=== PATIENT | male | born 1985 | race Caucasian/White ===

== ENCOUNTER 2018-08-07 16:22 | Emergency (ER) | payer MEDICARE ==
--- NOTE | 2018-08-07 16:52 | ERPHSYRPT ---
- History of Present Illness Time Seen by Provider: 08/07/18 16:50 Source: patient, family Exam Limitations: no limitations Patient Subjective Stated Complaint: STATES HAS HAD LEG CRAMPS FOR MONTHS. WORSE TODAY AND FEELS CONFUSED. Triage Nursing Assessment: ambulated to room per self with family member. skin w/d, color normal, resp easy. gait normal. a/o times four Physician History: c/o pain thigh and leg muscles for 1 month. no other symptoms Timing/Duration: week(s) Associated Symptoms: denies symptoms Allergies/Adverse Reactions: No Known Drug Allergies Allergy (Unverified 08/07/18 16:48) Home Medications: Sertraline HCl 50 mg [Zoloft 50 mg Tablet] 50 mg PO DAILY 08/07/18 [History] Hx Tetanus, Diphtheria Vaccination/Date Given: Yes Hx Influenza Vaccination/Date Given: No Hx Pneumococcal Vaccination/Date Given: No - Review of Systems Constitutional: No Fever, No Chills Eyes: No Symptoms Ears, Nose, & Throat: No Symptoms Respiratory: No Cough, No Dyspnea Cardiac: No Chest Pain, No Edema, No Syncope Abdominal/Gastrointestinal: No Abdominal Pain, No Nausea, No Vomiting, No Diarrhea Genitourinary Symptoms: No Dysuria Musculoskeletal: Myalgias (both thighs and legs), No Back Pain, No Neck Pain Skin: No Rash Neurological: No Dizziness, No Focal Weakness, No Sensory Changes Psychological: No Symptoms Endocrine: No Symptoms All Other Systems: Reviewed and Negative - Past Medical History Pertinent Past Medical History: Yes Psycho-Social History: Depression - Past Surgical History Past Surgical History: Yes Other Surgical History: TUBES IN EARS - Social History Smoking Status: Never smoker Exposure to second hand smoke: No Drug Use: none Patient Lives Alone: No - Nursing Vital Signs Nursing Vital Signs: Initial Vital Signs Temperature 98.1 F 08/07/18 16:34 Pulse Rate 89 08/07/18 16:34 Respiratory Rate 16 08/07/18 16:34 Blood Pressure 138/81 08/07/18 16:34 O2 Sat by Pulse Oximetry 93 L 08/07/18 16:34 Pain Scale Pain Intensity [Thigh] 8 Pain Intensity 8 - Physical Exam General Appearance: no apparent distress, alert Eye Exam: PERRL/EOMI, eyes nml inspection Ears, Nose, Throat Exam: normal ENT inspection, TMs normal, pharynx normal, moist mucous membranes Neck Exam: normal inspection, non-tender, supple, full range of motion Respiratory Exam: normal breath sounds, lungs clear, No respiratory distress Cardiovascular Exam: regular rate/rhythm, normal heart sounds, normal peripheral pulses Gastrointestinal/Abdomen Exam: soft, normal bowel sounds, No tenderness, No mass Back Exam: normal inspection, normal range of motion, No CVA tenderness, No vertebral tenderness Extremity Exam: normal inspection, normal range of motion, pelvis stable Neurologic Exam: alert, oriented x 3, cooperative, normal mood/affect, nml cerebellar function, nml station & gait, sensation nml, No motor deficits Skin Exam: normal color, warm, dry, No rash Lymphatic Exam: No adenopathy SpO2: 93 - Course Nursing assessment & vital signs reviewed: Yes Ordered Tests: Active Orders 24 hr Category Date Time Status CBC W DIFF Stat Lab 08/07/18 17:49 Completed CK-Creatinine Phosphokinase Stat Lab 08/07/18 17:49 Completed CMP Stat Lab 08/07/18 17:49 Completed MAGNESIUM Stat Lab 08/07/18 17:49 Completed Lab/Rad Data: Laboratory Result Diagrams 08/07/18 17:49 08/07/18 17:49 Laboratory Results 08/07/18 08/07/18 Range/Units 17:49 17:49 WBC 6.2 (4.0-10.5) K/mm3 RBC 4.27 (4.1-5.6) M/mm3 Hgb 13.8 (12.5-18.0) gm/dl Hct 40.6 L (42-50) % MCV 95.1 (78-100) fl MCH 32.3 H (26-32) pg MCHC 34.0 (32-36) g/dl RDW 14.0 (11.5-14.0) % Plt Count 284 (150-450) K/mm3 MPV 9.2 (6-9.5) fl Gran % 56.0 (36.0-66.0) % Eos # (Auto) 0.18 (0-0.5) Absolute Lymphs (auto) 2.01 (1.0-4.6) Absolute Monos (auto) 0.50 (0.0-1.3) Lymphocytes % 32.4 (24.0-44.0) % Monocytes % 8.1 (0.0-12.0) % Eosinophils % 2.9 (0.00-5.0) % Basophils % 0.6 (0.0-0.4) % Absolute Granulocytes 3.48 (1.4-6.9) Basophils # 0.04 (0-0.4) Sodium 142 (137-145) mmol/L Potassium 3.9 (3.5-5.1) mmol/L Chloride 106 (98-107) mmol/L Carbon Dioxide 26 (22-30) mmol/L Anion Gap 13.5 (5-15) MEQ/L BUN 16 (9-20) mg/dL Creatinine 0.95 (0.66-1.25) mg/dL Estimated GFR > 60.0 ML/MIN Glucose 75 (74-106) mg/dL Calcium 9.2 (8.4-10.2) mg/dL Magnesium 1.9 (1.6-2.3) mg/dL Total Bilirubin 0.30 (0.2-1.3) mg/dL AST 46 (17-59) U/L ALT 43 (0-50) U/L Alkaline Phosphatase 60 (38-126) U/L Creatine Kinase 797 H (55-170) U/L Serum Total Protein 6.6 (6.3-8.2) g/dL Albumin 4.1 (3.5-5.0) g/dL - Progress Progress: unchanged Counseled pt/family regarding: lab results, diagnosis, need for follow-up - Departure Departure Disposition: Home Clinical Impression: Myositis Qualifiers: Myositis type: other type Myositis location: thigh Laterality: unspecified laterality Qualified Code(s): M60.859 - Other myositis, unspecified thigh Condition: Stable Critical Care Time: No Referrals: DEEDEE SAMPSON MD [Primary Care Provider] - Instructions: Polymyositis Additional Instructions: Discharge/Care Plan HUNTERAMADOU GIRALDO was seen on 08/07/18 in the Emergency Room. The patient was counseled regarding Diagnosis,Lab results, Imaging studies, need for follow up and when to return to the Emergency Room. Prescriptions given: Discharge Note I have spoken with the patient and/or caregivers. I have explained the patient' s condition, diagnosis and treatment plan based on the information available to me at this time. I have answered the patient's and/or caregiver's questions and addressed any concerns. The patient and/or caregivers have as good understanding of the patient's diagnosis, condition and treatment plan as can be expected at this point. The vital signs have been stable. The patient's condition is stable and appropriate for discharge from the emergency department. The patient will pursue further outpatient evaluation with the primary care physician or other designated or consulting physician as outlined in the discharge instructions. The patient and/or caregivers are agreeable to this plan of care and follow-up instructions have been explained in detail. The patient and/or caregivers have received these instruction. The patient/and or caregivers are aware that any significant change in condition or worsening of symptoms should prompt an immediate return to this or the closest emergency department or call 911. Prescriptions: Methylprednisolone Packet [Medrol Dosepack] 4 mg PO UD 7 Days #30 packet
[2018-08-07 17:51] LABS: BASOPHIL % 0.6 % (0.0-0.4); Basophil (Absolute #) 0.04 (0-0.4); Eosinophil % 2.9 % (0.00-5.0); Eosinophil (Absolute #) 0.18 (0-0.5); Granulocyte Absolute (ANC) 3.48 (1.4-6.9); Hematocrit 40.6 % (42-50); Hemoglobin 13.8 gm/dl (12.5-18.0); Lymphocyte (Absolute #) 2.01 (1.0-4.6); Lymphocytes % 32.4 % (24.0-44.0); Mean Cell Volume 95.1 fl (78-100); Mean Corpuscular Hemoglobin 32.3 pg (26-32); Mean Platelet Volume 9.2 fl (6-9.5); Monocytes % 8.1 % (0.0-12.0); Platelet Count 284 K/mm3 (150-450); Red Blood Count 4.27 M/mm3 (4.1-5.6); White Blood Count 6.2 K/mm3 (4.0-10.5)
[2018-08-07 18:03] LABS: ALBUMIN 4.1 g/dL (3.5-5.0); ALKALINE PHOSPHATASE 60 U/L (38-126); ANION GAP 13.5 MEQ/L (5-15); BLOOD UREA NITROGEN 16 mg/dL (9-20); CHLORIDE 106 mmol/L (98-107); CK-Creatinine Phosphokinase 797 U/L (55-170); Calcium 9.2 mg/dL (8.4-10.2); Carbon Dioxide 26 mmol/L (22-30); Creatinine 1 0.95 mg/dL (0.66-1.25); Glucose 75 mg/dL (74-106); MAGNESIUM 1.9 mg/dL (1.6-2.3); Potassium 3.9 mmol/L (3.5-5.1); SGOT/AST 46 U/L (17-59); SGPT/ALT 43 U/L (0-50); SODIUM 142 mmol/L (137-145); Total Protein 6.6 g/dL (6.3-8.2)
[2018-08-07] MEDS ORDERED: Celestone Soluspan 6MG/ML IM ONE (18:17)
[2018-08-07] MEDS ORDERED: Celestone Soluspan 6MG/ML ONE (18:20)
[2018-08-07 18:26] VITALS: BP 129/69; PULSE 80; O2SAT 97
== END 2018-08-07 18:36 | disposition home or self-care (01) ==
LOC: ED 16:22
DX: M60.859 Other myositis, unspecified thigh (principal)
CPT/HCPCS: 36415; 80053; 82550; 83735; 85025; 96372; 99284; J0702

== ENCOUNTER 2020-05-12 10:02 | Emergency (ER) | payer MEDICARE ==
[2020-05-12 10:16] VITALS: BP 117/57; PULSE 67; O2SAT 97
--- NOTE | 2020-05-12 10:21 | ERPHSYRPT ---
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 Patient denies any other symptoms including nausea vomiting fever chills diarrhea. Patient also denies any abdominal strain. Timing/Duration: today Severity: mild Associated Symptoms: denies symptoms Allergies/Adverse Reactions: No Known Drug Allergies Allergy (Verified 11/13/19 21:58) Home Medications: Sertraline HCl 50 mg [Zoloft 50 mg Tablet] 50 mg PO DAILY 08/07/18 [History] ALPRAZolam 0.5 MG [xanAX 0.5 MG] 0.5 mg PO BID 11/13/19 [History] [place] Carbonate 600 mg PO DAILY 11/13/19 [History] Hx Tetanus, Diphtheria Vaccination/Date Given: Yes Hx Influenza Vaccination/Date Given: No Hx Pneumococcal Vaccination/Date Given: No - Review of Systems Constitutional: No Symptoms Eyes: No Symptoms Ears, Nose, & Throat: No Symptoms Respiratory: No Symptoms Cardiac: No Symptoms Abdominal/Gastrointestinal: Abdominal Pain Genitourinary Symptoms: No Symptoms Musculoskeletal: No Symptoms Skin: Skin Lesions (left side abdomen) - Past Medical History Pertinent Past Medical History: Yes Neurological History: No Pertinent History ENT History: No Pertinent History Cardiac History: No Pertinent History Respiratory History: No Pertinent History Endocrine Medical History: No Pertinent History Musculoskeletal History: No Pertinent History GI Medical History: No Pertinent History History: No Pertinent History Psycho-Social History: Depression Male Reproductive Disorders: No Pertinent History - Past Surgical History Past Surgical History: Yes Neuro Surgical History: No Pertinent History Cardiac: No Pertinent History Respiratory: No Pertinent History Gastrointestinal: No Pertinent History Genitourinary: No Pertinent History Musculoskeletal: No Pertinent History Male Surgical History: No Pertinent History Other Surgical History: TUBES IN EARS - Social History Smoking Status: Never smoker Exposure to second hand smoke: No Drug Use: none Patient Lives Alone: No Significant Family History: no pertinent family hx - Physical Exam General Appearance: no apparent distress Eye Exam: PERRL/EOMI Ears, Nose, Throat Exam: normal ENT inspection Neck Exam: normal inspection Respiratory Exam: normal breath sounds Cardiovascular Exam: regular rate/rhythm Gastrointestinal/Abdomen Exam: soft, tenderness (skin touch tenderness on left T12 dermatome) Rectal Exam: deferred Back Exam: rash Extremity Exam: normal inspection Neurologic Exam: alert, oriented x 3 - Course Nursing assessment & vital signs reviewed: Yes Ordered Tests: Medication Summary Generic Name Dose Route Start Last Admin Trade Name Freq PRN Reason Stop Dose Admin Acyclovir 800 mg 05/12/20 10:15 Zovirax 800 Mg PO 05/12/20 10:16 5XD STA Discontinued Medications Generic Name Dose Route Start Last Admin Trade Name Freq PRN Reason Stop Dose Admin Lidocaine 1 patch 05/12/20 10:14 Lidoderm Patch 5% TOP 05/12/20 10:15 STAT ONE - Progress Progress: unchanged Counseled pt/family regarding: diagnosis, need for follow-up - Departure Departure Disposition: Home Clinical Impression: Acute herpes zoster neuropathy Condition: Stable Critical Care Time: No Referrals: DEEDEE SAMPSON MD [Primary Care Provider] - Instructions: Malia (DC) Additional Instructions: Discharge/Care Plan HUNTERAMADOU GIRALDO was seen on 05/12/20 in the Emergency Room. The patient was counseled regarding Diagnosis,Lab results, Imaging studies, need for follow up and when to return to the Emergency Room. Prescriptions given: Discharge Note I have spoken with the patient and/or caregivers. I have explained the patient's condition, diagnosis and treatment plan based on the information available to me at this time. I have answered the patient's and/or caregiver's questions and addressed any concerns. The patient and/or caregivers have as good understanding of the patient's diagnosis, condition and treatment plan as can be expected at this point. The vital signs have been stable. The patient's condition is stable and appropriate for discharge from the emergency department. The patient will pursue further outpatient evaluation with the primary care physician or other designated or consulting physician as outlined in the discharge instructions. The patient and/or caregivers are agreeable to this plan of care and follow-up instructions have been explained in detail. The patient and/or caregivers have received these instruction. The patient/and or caregivers are aware that any significant change in condition or worsening of symptoms should prompt an immediate return to this or the closest emergency department or call 911. Prescriptions: Lidocaine HCl 5% Patch [Lidoderm Patch 5%] 1 patch TP DAILY #15 patch Acyclovir 800 mg [Zovirax 800 mg] 800 mg PO TID #30 tablet
[2020-05-12] MEDS: Lidoderm Patch 5% TOP ONE (10:25)
[2020-05-12] MEDS: ZOVIRAX 800 MG PO STA (10:25)
== END 2020-05-12 10:40 | disposition home or self-care (01) ==
LOC: ED 10:02
DX: B02.8 Zoster with other complications (principal)
CPT/HCPCS: 99283; A9270-GY

== ENCOUNTER 2023-12-10 07:32 | Emergency (ER) | payer BC ==
[2023-12-10] MEDS ORDERED: XYLOCAINE 1% HCL 20 ML MDV IJ ONE (07:33)
--- NOTE | 2023-12-10 07:36 | ERPHSYRPT ---
- History of Present Illness Time Seen by Provider: 12/10/23 07:45 Source: patient, family Exam Limitations: no limitations Physician History: This is a 38-year-old white male patient who arrives by private vehicle secondary to chronic recurrent earaches and chronic recurrent headaches. Patient has history of depression. He denies a recent history of any head injury. Because of his pain complaints, he was seen by pain management on 12/08/2023 and given an injection of steroids followed by outpatient prescription of prednisone. He did not fill the prednisone prescription. Approximately 4 to 5 days ago he completed amoxicillin antibiotics. He has an appointment to see law researcher in 1 week. Patient has not had a fever. Timing/Duration: other (Chronic recurrent) Quality: aching Severity of Pain-Max: mild (To moderate) Severity of Pain-Current: mild (Moderate) Recent Head Trauma: no recent headache/trauma, chronic headaches Modifying Factors: Improves With: other (Nothing) Associated Symptoms: other (Lateral earaches), No confusion, No dizziness, No sensitive to light, No vision changes, No visual disturbance Previous symptoms: same symptoms as today, recently seen Allergies/Adverse Reactions: No Known Drug Allergies Allergy (Verified 11/16/22 07:32) Home Medications: Benztropine Mesylate 1 ea DAILY 11/16/22 [History] methylPREDNISolone [Methylprednisolone] 12/10/23 [History] Hx Tetanus, Diphtheria Vaccination/Date Given: Yes Hx Influenza Vaccination/Date Given: No Hx Pneumococcal Vaccination/Date Given: No Travel Risk - International Travel Have you traveled outside of the country in past 3 weeks: No - Emerging Infectious Disease Are you exhibiting symptoms associated with any current EIDs: No - Review of Systems Constitutional: No Symptoms Eyes: No Symptoms Ears, Nose, & Throat: Ear Pain (Lateral), No Tinnitus Respiratory: No Symptoms Cardiac: No Symptoms Abdominal/Gastrointestinal: No Symptoms Genitourinary Symptoms: No Symptoms Musculoskeletal: No Symptoms Skin: No Symptoms Neurological: Headache (Chronic not the worst headache he has ever had) Psychological: No Symptoms Endocrine: No Symptoms Hematologic/Lymphatic: No Symptoms Immunological/Allergic: No Symptoms All Other Systems: Reviewed and Negative - Past Medical History Pertinent Past Medical History: Yes Neurological History: No Pertinent History ENT History: No Pertinent History Cardiac History: No Pertinent History Respiratory History: No Pertinent History Endocrine Medical History: No Pertinent History Musculoskeletal History: No Pertinent History GI Medical History: No Pertinent History History: No Pertinent History Psycho-Social History: Depression Male Reproductive Disorders: No Pertinent History - Past Surgical History Past Surgical History: Yes Neuro Surgical History: No Pertinent History Cardiac: No Pertinent History Respiratory: No Pertinent History Gastrointestinal: No Pertinent History Genitourinary: No Pertinent History Musculoskeletal: No Pertinent History Male Surgical History: No Pertinent History Other Surgical History: TUBES IN EARS Significant Family History: no pertinent family hx - Social History Smoking Status: Never smoker Exposure to second hand smoke: No Drug Use: none Patient Lives Alone: No - Nursing Vital Signs Nursing Vital Signs: Initial Vital Signs Temperature 97.5 F 12/10/23 07:36 Pulse Rate 79 12/10/23 07:36 Respiratory Rate 20 12/10/23 07:36 Blood Pressure 162/85 12/10/23 07:36 O2 Sat by Pulse Oximetry 99 12/10/23 07:36 Pain Scale Pain Intensity 8 - Physical Exam General Appearance: no apparent distress, alert Eye Exam: PERRL/EOMI, eyes nml inspection Ears, Nose, Throat Exam: normal ENT inspection, moist mucous membranes, other (Bilateral tympanic membranes are scarred with no evidence of bulging and no evidence of significant redness. 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 Exam: normal hearing, normal speech, PERRL Coordination/Gait Exam: normal finger to nose, normal gait, normal cerebellar function Motor/Sensory Exam: no motor deficit, no sensory deficit Skin Exam: normal color, warm, dry Lymphatic Exam: No adenopathy SpO2 Interpretation: normal O2 Delivery: Room Air - Course Nursing assessment & vital signs reviewed: Yes - Progress Progress: unchanged Air Movement: good Progress Note: 12/10/23 07:54 My medical decision making of the assignment of low complexity to this patient's medical issue today is based on review of the patient's past medical history, kb anandwed patient's medication list, reviewed patient drug allergy list, history present illness and physical findings on examination. The workup does not require any radiographic or laboratory studies. Blood Culture(s) Obtained: No Antibiotics given: Yes Counseled pt/family regarding: diagnosis, need for follow-up Medical Desision Making - Diagnostic Testing Diagnostic test were ordered, analyzed, and reviewed by me: No - Risk of complications The pt has a mod risk of morbidity or mortality based on: Need for prescription drug management - Departure Departure Disposition: Home Clinical Impression: Acute pain of both ears Condition: Stable Critical Care Time: No Referrals: DEEDEE SAMPSON MD [Primary Care Provider] - Follow up/PCP as directed Additional Instructions: Fill your prednisone and take it as prescribed. May also add Tylenol to control your earaches. Take your new antibiotic prescription and other medications as prescribed. Keep your appointment with your law researcher. Prescriptions: Azithromycin 250 mg [Zithromax 250 MG TABLET] 250 mg PO ZPACK #6 tablet
[2023-12-10 07:40] VITALS: TEMP 97.5
[2023-12-10] MEDS ORDERED: Rocephin 1000 MG INJ ONE (08:01)
[2023-12-10] MEDS: Rocephin 1000 MG INJ IM ONE (08:02)
[2023-12-10 08:28] VITALS: BP 158/82; PULSE 58; RESP 18; O2SAT 98
== END 2023-12-10 08:29 | disposition home or self-care (01) ==
LOC: ED 07:32
DX: H92.03 Otalgia, bilateral (principal); R51.9 Headache, unspecified; Z79.52 Long term (current) use of systemic steroids; Z79.899 Other long term (current) drug therapy
CPT/HCPCS: 96372; 99282; J0696

== ENCOUNTER 2024-03-21 07:41 | Observation (INO) | payer BC ==
--- NOTE | 2024-03-21 07:51 | ERPHSYRPT ---
- History of Present Illness Time Seen by Provider: 03/21/24 07:50 Historian: patient Exam Limitations: no limitations Physician History: Patient is a 39-year-old male history of hypertension presents to our emergency department for evaluation of chest pain that has been intermittent for approximately 2 weeks. Chest pain described as a dull ache mostly on the left side of his chest radiates into his neck into his shoulder. No trauma no fever. No history of the same. Symptoms are intermittent. Symptoms are moderate in intensity. No specific worsening or improving factors. Patient denies a history of the same. He otherwise feels well. at bedside. They voiced no other complaints or concerns at this time. Portions of this note were created with voice recognition technology. There may be grammatical, spelling, punctuation or sound alike errors Timing/Duration: week(s) (2 weeks) Activities at Onset: none Quality: aching Location: substernal (Substernal into the left region of the chest) Chest Pain Radiation: neck, arm Severity of Pain-Max: moderate Severity of Pain-Current: mild Modifying Factors: Improves With: nothing Associated Symptoms: denies symptoms Prior Chest Pain/Cardiac Workup: no prior chest pain Nitro Today/Relief: no nitro taken today Aspirin Treatment Today: no aspirin today Allergies/Adverse Reactions: No Known Drug Allergies Allergy (Verified 03/21/24 07:50) Home Medications: Lumateperone Tosylate [Caplyta] 42 mg PO DAILY 03/21/24 [History] Hx Tetanus, Diphtheria Vaccination/Date Given: Yes Hx Influenza Vaccination/Date Given: No Hx Pneumococcal Vaccination/Date Given: No Travel Risk - Emerging Infectious Disease Are you exhibiting symptoms associated with any current EIDs: No - Review of Systems Constitutional: No Symptoms, No Fever, No Chills Eyes: No Symptoms Ears, Nose, & Throat: No Symptoms Respiratory: No Symptoms, No Cough, No Dyspnea Cardiac: No Symptoms, No Chest Pain, No Edema, No Syncope Abdominal/Gastrointestinal: No Symptoms, No Abdominal Pain, No Nausea, No Vomiting, No Diarrhea Genitourinary Symptoms: No Symptoms, No Dysuria Musculoskeletal: No Symptoms, No Back Pain, No Neck Pain Skin: No Symptoms, No Rash Neurological: No Symptoms, No Dizziness, No Focal Weakness, No Sensory Changes Psychological: No Symptoms Endocrine: No Symptoms Hematologic/Lymphatic: No Symptoms Immunological/Allergic: No Symptoms All Other Systems: Reviewed and Negative - Past Medical History Pertinent Past Medical History: Yes Neurological History: No Pertinent History ENT History: No Pertinent History Cardiac History: No Pertinent History Respiratory History: No Pertinent History Endocrine Medical History: No Pertinent History Musculoskeletal History: No Pertinent History GI Medical History: No Pertinent History History: No Pertinent History Psycho-Social History: Depression Male Reproductive Disorders: No Pertinent History - Past Surgical History Past Surgical History: Yes Neuro Surgical History: No Pertinent History Cardiac: No Pertinent History Respiratory: No Pertinent History Gastrointestinal: No Pertinent History Genitourinary: No Pertinent History Musculoskeletal: No Pertinent History Male Surgical History: No Pertinent History Other Surgical History: TUBES IN EARS Significant Family History: no pertinent family hx - Social History Smoking Status: Never smoker Exposure to second hand smoke: No Drug Use: none Patient Lives Alone: No - Social Determinants of Health Will the patient participate in the screening: Declined to provide - Nursing Vital Signs Nursing Vital Signs: Initial Vital Signs Temperature 96.7 F 03/21/24 07:48 Pulse Rate 75 03/21/24 07:48 Respiratory Rate 16 03/21/24 07:48 Blood Pressure 141/98 03/21/24 07:48 O2 Sat by Pulse Oximetry 100 03/21/24 07:48 Pain Scale Pain Intensity 2 - Physical Exam General Appearance: no apparent distress, alert Eye Exam: PERRL/EOMI, eyes nml inspection Ears, Nose, Throat Exam: normal ENT inspection, moist mucous membranes Neck Exam: normal inspection, non-tender, supple, full range of motion Respiratory Exam: normal breath sounds, lungs clear, airway intact, No respiratory distress Cardiovascular Exam: regular rate/rhythm, normal heart sounds, normal peripheral pulses Gastrointestinal/Abdomen Exam: soft, No tenderness, No mass Back Exam: normal inspection, No CVA tenderness, No vertebral tenderness Extremity Exam: normal inspection, normal range of motion Neurologic Exam: alert, oriented x 3, cooperative, normal mood/affect, sensation nml, No motor deficits Skin Exam: normal color, warm, dry SpO2 Interpretation: normal SpO2: 100 O2 Delivery: Room Air - Course Nursing assessment & vital signs reviewed: Yes EKG Interpreted by Me: RATE (68), Sinus Rhythm, NORMAL AXIS, NORMAL INTERVALS, NORMAL QRS - Radiology Exams Chest X-ray Interpretation: Teleradiologist Report (No acute findings) Ordered Tests: Active Orders 24 hr Category Date Time Status Media Traffic Manager STAT Care 03/21/24 07:51 Active EKG-ER Only STAT Care 03/21/24 07:50 Active IV Insertion STAT Care 03/21/24 07:50 Active Pulse Oximetry (ED) STAT Care 03/21/24 07:50 Active CHEST 1 VIEW (PORTABLE) Stat Exams 03/21/24 10:51 Completed CBC W DIFF Stat Lab 03/21/24 08:04 Completed CMP Stat Lab 03/21/24 08:04 Completed D-DIMER QUANTITATIVE Stat Lab 03/21/24 08:04 Completed NT PRO BNPII Stat Lab 03/21/24 08:04 Completed TROPONIN Q4H Lab 03/21/24 08:04 Completed TROPONIN Q4H Lab 03/21/24 10:58 Completed TROPONIN Q4H Lab 03/21/24 16:00 Ordered Transfer Order Routine Transfer 03/21/24 Ordered Medication Summary Discontinued Medications Generic Name Dose Route Start Last Admin Trade Name Freq PRN Reason Stop Dose Admin Albuterol Sulfate Confirm 03/21/24 07:56 Albuterol Sulfate 2.5 Mg/3 Ml Neb Administered 03/21/24 07:57 Dose 5 mg IH .STK-MED ONE Albuterol/Ipratropium Confirm 03/21/24 07:56 Ipratropium/Albuterol Sulfate 3 Ml Ampul.Neb Administered 03/21/24 07:57 Dose 3 ml IH .STK-MED ONE Aspirin 324 mg 03/21/24 08:32 03/21/24 08:38 Aspirin 81 Mg Tab.Chew PO 03/21/24 08:33 324 mg STAT ONE Administration Aspirin Confirm 03/21/24 08:37 Aspirin 81 Mg Tab.Chew Administered 03/21/24 08:38 Dose 324 mg .ROUTE .STK-MED ONE Nitroglycerin 1 gm 03/21/24 08:32 03/21/24 08:38 Nitroglycerin 1 Gm Packet TOP 03/21/24 08:33 1 gm STAT ONE Administration Nitroglycerin Confirm 03/21/24 08:37 Nitroglycerin 1 Gm Packet Administered 03/21/24 08:38 Dose 1 gm .ROUTE .STK-MED ONE Lab/Rad Data: Laboratory Result Diagrams 03/21/24 08:04 03/21/24 08:04 Laboratory Results 03/21/24 03/21/24 03/21/24 Range/Units 10:58 08:04 08:04 WBC (4.23-9.07) x10^3/uL RBC (4.63-6.08) x10^6/uL Hgb (13.7-17.5) g/dL Hct (40.1-51.0) % MCV (79.0-92.2) fL MCH (25.7-32.2) pg MCHC (32.3-36.5) g/dL RDW (11.6-14.4) % Plt Count (163-337) x10^3/uL MPV (9.4-12.4) fL Gran % (34.0-67.9) % Immature Gran % (Auto) (0.001-0.429) % Nucleat RBC Rel Count (0.00-0.2) % Eos # (Auto) (0.04-0.54) x10^3/uL Immature Gran # (Auto) (0.001-0.031) x10^3u/L Absolute Lymphs (auto) (1.32-3.57) x10^3/uL Absolute Monos (auto) (0.30-0.82) x10^3/uL Absolute Nucleated RBC (0.00-0.012) x10^3u/L Lymphocytes % (21.8-53.1) % Monocytes % (5.3-12.2) % Eosinophils % (0.8-7.0) % Basophils % (0.2-1.2) % Absolute Granulocytes (1.78-5.38) x10^3/uL Basophils # (0.01-0.08) x10^3/uL D-Dimer < 0.19 (0.0-0.50) mg/L Sodium (135-145) mmol/L Potassium (3.5-5.1) mmol/L Chloride (98-107) mmol/L Carbon Dioxide (22-30) mmol/L Anion Gap (5-15) MEQ/L BUN (9-20) mg/dL Creatinine (0.66-1.25) mg/dL Estimated GFR ML/MIN Glucose (74-106) mg/dL Calcium (8.4-10.2) mg/dL Total Bilirubin (0.2-1.3) mg/dL AST (17-59) U/L ALT (0-50) U/L Alkaline Phosphatase (38-126) U/L Troponin I < 0.012 < 0.012 (0.000-0.033) ng/mL NT-Pro-B Natriuret Pep (<300) pg/mL Serum Total Protein (6.3-8.2) g/dL Albumin (3.5-5.0) g/dL 03/21/24 03/21/24 Range/Units 08:04 08:04 WBC 5.0 (4.23-9.07) x10^3/uL RBC 4.69 (4.63-6.08) x10^6/uL Hgb 14.9 (13.7-17.5) g/dL Hct 42.8 (40.1-51.0) % MCV 91.3 (79.0-92.2) fL MCH 31.8 (25.7-32.2) pg MCHC 34.8 (32.3-36.5) g/dL RDW 12.2 (11.6-14.4) % Plt Count 226 (163-337) x10^3/uL MPV 8.8 L (9.4-12.4) fL Gran % 66.4 (34.0-67.9) % Immature Gran % (Auto) 1.0 H (0.001-0.429) % Nucleat RBC Rel Count 0.0 (0.00-0.2) % Eos # (Auto) 0.10 (0.04-0.54) x10^3/uL Immature Gran # (Auto) 0.05 H (0.001-0.031) x10^3u/L Absolute Lymphs (auto) 1.21 L (1.32-3.57) x10^3/uL Absolute Monos (auto) 0.27 L (0.30-0.82) x10^3/uL Absolute Nucleated RBC 0.00 (0.00-0.012) x10^3u/L Lymphocytes % 24.4 (21.8-53.1) % Monocytes % 5.4 (5.3-12.2) % Eosinophils % 2.0 (0.8-7.0) % Basophils % 0.8 (0.2-1.2) % Absolute Granulocytes 3.29 (1.78-5.38) x10^3/uL Basophils # 0.04 (0.01-0.08) x10^3/uL D-Dimer (0.0-0.50) mg/L Sodium 140 (135-145) mmol/L Potassium 3.8 (3.5-5.1) mmol/L Chloride 104 (98-107) mmol/L Carbon Dioxide 24 (22-30) mmol/L Anion Gap 14.9 (5-15) MEQ/L BUN 17 (9-20) mg/dL Creatinine 1.01 (0.66-1.25) mg/dL Estimated GFR 96.4 ML/MIN Glucose 165 H (74-106) mg/dL Calcium 9.1 (8.4-10.2) mg/dL Total Bilirubin 0.70 (0.2-1.3) mg/dL AST 34 (17-59) U/L ALT 43 (0-50) U/L Alkaline Phosphatase 47 (38-126) U/L Troponin I (0.000-0.033) ng/mL NT-Pro-B Natriuret Pep 41.6 (<300) pg/mL Serum Total Protein 6.6 (6.3-8.2) g/dL Albumin 4.5 (3.5-5.0) g/dL - Progress Progress: improved Air Movement: good Progress Note: 39-year-old male history of hypertension presents to our emergency department for evaluation of intermittent chest pain radiating to his neck and left shoulder. Pain has been intermittent for the past 2 weeks. Symptoms are progressive. Physical exam otherwise nonremarkable. EKG suggestive of LVH. Patient received aspirin and nitroglycerin. Pain resolved. No active chest pa in at this time. D-dimer negative. Initial troponin negative as well. Patient will be admitted for further evaluation and treatment. Plan of care discussed with patient. He agrees to admission to [facility] for further evaluation and treatment. Portions of this note were created with voice recognition technology. There may be grammatical, spelling, punctuation or sound alike errors Complexity of problem addressed is moderate acute complicated. No critical care time. Complex of data reviewed and analyzed is extensive. Test ordered chest reviewed results analyzed and correlated clinically with history and physical exam. Case discussed with accepts admission to observation at 1:05 PM. Risk of complication and or risk of morbidity/mortality of patient management is high. Patient requires hospitalization for further evaluation and treatment. Vital stable. Time spent to admit patient approximately 15 minutes. Plan of care established for shared decision making. No social determinants of health present to impede follow-up. Portions of this note were created with voice recognition technology. There may be grammatical, spelling, punctuation or sound alike errors 03/21/24 13:08 Blood Culture(s) Obtained: No Antibiotics given: No Counseled pt/family regarding: lab results, diagnosis, rad results - Departure Departure Disposition: Observation Clinical Impression: Chest pain, Acute coronary syndrome Condition: Stable Critical Care Time: No Referrals: DEEDEE SAMPSON MD [Primary Care Provider] - Follow up/PCP as directed Additional Instructions: Discharge/Care Plan AMADOU HARRISON was seen on 03/21/24 in the Emergency Room. The patient was counseled regarding Diagnosis,Lab results, Imaging studies, need for follow up and when to return to the Emergency Room. Prescriptions given: Discharge Note I have spoken with the patient and/or caregivers. I have explained the patient's condition, diagnosis and treatment plan based on the information available to me at this time. I have answered the patient's and/or caregiver's questions and addressed any concerns. The patient and/or caregivers have as good understanding of the patient's diagnosis, condition and treatment plan as can be expected at this point. The vital signs have been stable. The patient's condition is stable and appropriate for discharge from the emergency department. The patient will pursue further outpatient evaluation with the primary care physician or other designated or consulting physician as outlined in the discharge instructions. The patient and/or caregivers are agreeable to this plan of care and follow-up instructions have been explained in detail. The patient and/or caregivers have received these instruction. The patient/and or caregivers are aware that any significant change in condition or worsening of symptoms should prompt an immediate return to this or the closest emergency department or call 911.
[2024-03-21] MEDS ORDERED: PROVENTIL 2.5 MG/3 ML NEB IH ONE (07:56)
[2024-03-21] MEDS ORDERED: DUONEB 0.5-3 MG/3 ml Neb IH ONE (07:56)
[2024-03-21 08:02] LABS: Absolute Neutrophil Ct (ANC) 3.29 x10^3/uL (1.78-5.38); BASOPHIL % 0.8 % (0.2-1.2); Basophil (Absolute #) 0.04 x10^3/uL (0.01-0.08); Hematocrit 42.8 % (40.1-51.0); Hemoglobin 14.9 g/dL (13.7-17.5); IMMATURE GRAN # 0.05 x10^3u/L (0.001-0.031); Lymphocyte (Absolute #) 1.21 x10^3/uL (1.32-3.57); Lymphocytes % 24.4 % (21.8-53.1); Mean Cell Volume 91.3 fL (79.0-92.2); Mean Corpuscular Hemoglobin 31.8 pg (25.7-32.2); Mean Corpuscular Hgb Concent. 34.8 g/dL (32.3-36.5); Mean Platelet Volume 8.8 fL (9.4-12.4); Monocyte (Absolute #) 0.27 x10^3/uL (0.30-0.82); Monocytes % 5.4 % (5.3-12.2); Neutrophil % 66.4 % (34.0-67.9); Platelet Count 226 x10^3/uL (163-337); Red Blood Count 4.69 x10^6/uL (4.63-6.08); Red Cell Distribution Width 12.2 % (11.6-14.4)
[2024-03-21 08:28] LABS: ALBUMIN 4.5 g/dL (3.5-5.0); ANION GAP 14.9 MEQ/L (5-15); BILIRUBIN,TOTAL 0.7 mg/dL (0.2-1.3); Calcium 9.1 mg/dL (8.4-10.2); Creatinine 1 1.01 mg/dL (0.66-1.25); EST GLOMERULAR FILTRATION RATE 96.4 ML/MIN; NT PRO BNPII 41.6 pg/mL (<300); Potassium 3.8 mmol/L (3.5-5.1); Total Protein 6.6 g/dL (6.3-8.2)
[2024-03-21] MEDS ORDERED: BABY ASPIRIN 81 MG CHEW ONE (08:37)
[2024-03-21] MEDS ORDERED: NITRO-BID 2% UD PACKETS ONE (08:37)
[2024-03-21] MEDS: NITRO-BID 2% UD PACKETS TOP ONE (08:38)
[2024-03-21] MEDS: BABY ASPIRIN 81 MG CHEW PO ONE (08:38)
--- NOTE | 2024-03-21 12:08 | XRAY ---
Indication: Chest pain. Comparison: July 18, 2018 Portable chest less inflated and remains clear. Heart not enlarged. Bony thorax intact. No new/acute findings.
--- NOTE | 2024-03-21 15:28 | PCM.HP ---
History of Present Illness - Chief Complaint Chief Complaint: Chest pain, ACS Date: 03/21/24 History of Present Illness: is a 39 year old male with a pmhx of bipolar disease, HTN, and hypothroidism presented to ED 03/21/24 with complaints of a one month history of chest pain. Patient reports that over the past month he has been experiencing intermittent left-sided chest pain. He describes the pain as a dull ache with radiation to the left arm. Associated shortness of breath. Stress and exertion seems to aggravate symptoms. Nitro relieved pain. Patient has been prescribed blood pressure and synthroid but has not taken them. Upon arrival to the ED, vitals stable. EKG NS with LVH. CXR with no acute findings. Lab findings unremarkable. Patient given Nitro paste and Asprin in ED with relief of symptoms. Admit for chest pain r/o. i - Review of Systems Constitutional: No Symptoms Eyes: No Symptoms Ears, Nose, & Throat: No Symptoms Respiratory: Short Of Breath Cardiac: Chest Pain Abdominal/Gastrointestinal: No Symptoms Genitourinary Symptoms: No Symptoms Musculoskeletal: No Symptoms Skin: No Symptoms Neurological: No Symptoms Psychological: Anxiety, Depression Endocrine: No Symptoms Hematologic/Lymphatic: No Symptoms Immunological/Allergic: No Symptoms Medications & Allergies Home Medications: Home Medication List Lumateperone Tosylate [Caplyta] 42 mg PO DAILY 03/21/24 [History Confirmed 03/21/24] Propranolol HCl 10 mg PO TID 03/21/24 [History Confirmed 03/21/24] Trazodone HCl 50 mg PO HS PRN PRN 03/21/24 [History Confirmed 03/21/24] Allergies/Adverse Reactions: Allergies Allergy/AdvReac Type Severity Reaction Status Date / Time No Known Drug Allergies Allergy Verified 03/21/24 07:50 - Past Medical History Past Medical History: Yes Neurological History: No Pertinent History ENT History: No Pertinent History Cardiac History: Hypertension Respiratory History: Bronchitis, Pneumonia Endocrine Medical History: Hypothyroidism Musculoskelatal History: No Pertinent History GI Medical History: Irritable Bowel History: No Pertinent History Pyscho-Social History: Anxiety, Bipolar, Depression Male Reproductive Disorders: No Pertinent History - Past Surgical History Past Surgical History: Yes Neuro Surgical History: No Pertinent History Cardiac History: No Pertinent History Respiratory Surgery: No Pertinent History GI Surgical History: No Pertinent History Genitourinary Surgical Hx: No Pertinent History Musculskeletal Surgical Hx: No Pertinent History Male Surgical History: No Pertinent History Other Surgical History: TUBES IN EARS Significant Family History: hypertension - Social History Smoking Status: Never smoker Exposure to second hand smoke: No Alcohol: None Drug Use: other - Social Determinants of Health Will the patient participate in the screening: Yes Do you worry about a steady place to live?: No Do you have any problems with any of the following?: No known problems In the past 12 months,have you had to go without utilities?: No Have you or anyone in your house had to go without enough: No Transportation Issues: No Has anyone in your support network made you feel unsafe?: No Does the patient want assistance with any of the above?: No - Physical Exam Vital Signs: Vital Signs - 24 hr Temp Pulse Pulse Resp BP BP Pulse Ox 03/21/24 14:08 97.8 F 66 16 151/99 95 03/21/24 13:11 100 03/21/24 13:00 21 97/57 97 03/21/24 12:30 18 109/78 97 03/21/24 12:00 17 113/79 97 03/21/24 11:30 24 124/75 96 03/21/24 10:30 14 108/75 97 03/21/24 10:00 67 32 H 128/85 93 L 03/21/24 09:30 16 125/93 96 03/21/24 09:20 96 03/21/24 09:10 16 95 03/21/24 09:01 79 22 03/21/24 08:50 97 03/21/24 08:40 98 03/21/24 08:33 77 18 98 03/21/24 08:15 98 03/21/24 08:13 20 L 03/21/24 08:00 74 137/92 97 03/21/24 07:48 96.7 F 75 16 141/98 100 General Appearance: no apparent distress Neurologic Exam: alert, oriented x 3, cooperative Eye Exam: PERRL/EOMI Ears, Nose, Throat Exam: normal ENT inspection Neck Exam: normal inspection Respiratory Exam: normal breath sounds, lungs clear Cardiovascular Exam: regular rate/rhythm, normal heart sounds Gastrointestinal/Abdomen Exam: soft, normal bowel sounds Rectal Exam: deferred Back Exam: normal inspection Extremity Exam: normal inspection Skin Exam: normal color Results - Labs Lab/Micro Results: Lab Results-Last 24 Hours 03/21/24 03/21/24 03/21/24 Range/Units 08:04 08:04 08:04 WBC 5.0 (4.23-9.07) x10^3/uL RBC 4.69 (4.63-6.08) x10^6/uL Hgb 14.9 (13.7-17.5) g/dL Hct 42.8 (40.1-51.0) % MCV 91.3 (79.0-92.2) fL MCH 31.8 (25.7-32.2) pg MCHC 34.8 (32.3-36.5) g/dL RDW 12.2 (11.6-14.4) % Plt Count 226 (163-337) x10^3/uL MPV 8.8 L (9.4-12.4) fL Gran % 66.4 (34.0-67.9) % Immature Gran % (Auto) 1.0 H (0.001-0.429) % Nucleat RBC Rel Count 0.0 (0.00-0.2) % Eos # (Auto) 0.10 (0.04-0.54) x10^3/uL Immature Gran # (Auto) 0.05 H (0.001-0.031) x10^3u/L Absolute Lymphs (auto) 1.21 L (1.32-3.57) x10^3/uL Absolute Monos (auto) 0.27 L (0.30-0.82) x10^3/uL Absolute Nucleated RBC 0.00 (0.00-0.012) x10^3u/L Lymphocytes % 24.4 (21.8-53.1) % Monocytes % 5.4 (5.3-12.2) % Eosinophils % 2.0 (0.8-7.0) % Basophils % 0.8 (0.2-1.2) % Absolute Granulocytes 3.29 (1.78-5.38) x10^3/uL Basophils # 0.04 (0.01-0.08) x10^3/uL D-Dimer < 0.19 (0.0-0.50) mg/L Sodium 140 (135-145) mmol/L Potassium 3.8 (3.5-5.1) mmol/L Chloride 104 (98-107) mmol/L Carbon Dioxide 24 (22-30) mmol/L Anion Gap 14.9 (5-15) MEQ/L BUN 17 (9-20) mg/dL Creatinine 1.01 (0.66-1.25) mg/dL Estimated GFR 96.4 ML/MIN Glucose 165 H (74-106) mg/dL Calcium 9.1 (8.4-10.2) mg/dL Total Bilirubin 0.70 (0.2-1.3) mg/dL AST 34 (17-59) U/L ALT 43 (0-50) U/L Alkaline Phosphatase 47 (38-126) U/L Troponin I (0.000-0.033) ng/mL NT-Pro-B Natriuret Pep 41.6 (<300) pg/mL Serum Total Protein 6.6 (6.3-8.2) g/dL Albumin 4.5 (3.5-5.0) g/dL 03/21/24 03/21/24 Range/Units 08:04 10:58 WBC (4.23-9.07) x10^3/uL RBC (4.63-6.08) x10^6/uL Hgb (13.7-17.5) g/dL Hct (40.1-51.0) % MCV (79.0-92.2) fL MCH (25.7-32.2) pg MCHC (32.3-36.5) g/dL RDW (11.6-14.4) % Plt Count (163-337) x10^3/uL MPV (9.4-12.4) fL Gran % (34.0-67.9) % Immature Gran % (Auto) (0.001-0.429) % Nucleat RBC Rel Count (0.00-0.2) % Eos # (Auto) (0.04-0.54) x10^3/uL Immature Gran # (Auto) (0.001-0.031) x10^3u/L Absolute Lymphs (auto) (1.32-3.57) x10^3/uL Absolute Monos (auto) (0.30-0.82) x10^3/uL Absolute Nucleated RBC (0.00-0.012) x10^3u/L Lymphocytes % (21.8-53.1) % Monocytes % (5.3-12.2) % Eosinophils % (0.8-7.0) % Basophils % (0.2-1.2) % Absolute Granulocytes (1.78-5.38) x10^3/uL Basophils # (0.01-0.08) x10^3/uL D-Dimer (0.0-0.50) mg/L Sodium (135-145) mmol/L Potassium (3.5-5.1) mmol/L Chloride (98-107) mmol/L Carbon Dioxide (22-30) mmol/L Anion Gap (5-15) MEQ/L BUN (9-20) mg/dL Creatinine (0.66-1.25) mg/dL Estimated GFR ML/MIN Glucose (74-106) mg/dL Calcium (8.4-10.2) mg/dL Total Bilirubin (0.2-1.3) mg/dL AST (17-59) U/L ALT (0-50) U/L Alkaline Phosphatase (38-126) U/L Troponin I < 0.012 < 0.012 (0.000-0.033) ng/mL NT-Pro-B Natriuret Pep (<300) pg/mL Serum Total Protein (6.3-8.2) g/dL Albumin (3.5-5.0) g/dL - Radiology Impressions Radiology Exams & Impressions: Radiology Procedures Category Date Time Status CHEST 1 VIEW (PORTABLE) Stat Exams 03/21/24 10:51 Completed ECHO W/2D AND DOPPLER [US] Routine Exams 03/21/24 15:03 Ordered Assessment/Plan (1) Chest pain Current Visit: Yes Status: Acute Assessment & Plan: -EKG NS with LVH -Echo ordered and pending -TSH/BNP/MG -trops x 2 WNL - trend -cardiology consult Code(s): R07.9 - CHEST PAIN, UNSPECIFIED (2) Bipolar 1 disorder Current Visit: Yes Status: Acute Assessment & Plan: -continue home meds caplyta Code(s): F31.9 - BIPOLAR DISORDER, UNSPECIFIED (3) Hypothyroidism Current Visit: Yes Status: Acute Assessment & Plan: -Patient not taking synthroid as prescribed - will obtain TSH/Ft4 Code(s): E03.9 - HYPOTHYROIDISM, UNSPECIFIED (4) HTN (hypertension) Current Visit: Yes Status: Acute Assessment & Plan: -Patient not taking home blood pressure meds - will start on lisinopril Code(s): I10 - ESSENTIAL (PRIMARY) HYPERTENSION (5) Chewing tobacco dependence Current Visit: Yes Status: Acute Assessment & Plan: -Patient requesting nicotine patch - advised cessation VTE: lovenox PPI: protonix Dispo: 1-2 days Code(s): F17.220 - NICOTINE DEPENDENCE, CHEWING TOBACCO, UNCOMPLICATED
[2024-03-21] MEDS ORDERED: TYLENOL 325 MG PO PRN (15:32)
[2024-03-21] MEDS ORDERED: Zofran 4 MG/2 ML VIAL IV PRN (15:32)
[2024-03-21] MEDS: Zestril 20 MG PO SCH (16:16)
[2024-03-21] MEDS: Protonix 40MG Tablet PO SCH (16:16)
[2024-03-21] MEDS: ENOXAPARIN SODIUM SQ SCH (16:16)
[2024-03-21] MEDS: Nicoderm CQ 21 MG TOP SCH (16:18)
[2024-03-21 17:08] LABS: TSH, 3RD Generation 5.031 mIU/L (0.470-4.680)
--- NOTE | 2024-03-21 21:13 | PCM.CONS ---
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 He has been on propranolol for months for HTN but has not been quaker about taking it. He had chest pain at rest today. 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 On arrival SBP >150. Troponin negative. He was given lisinopril 20 mg. Chest pain currently resolved. Denies orthopnea, PND, lower extremity edema. ECG without ischemic changes. cc:: The requesting physician will be sent a copy of the consult. Review of Systems - Review of Systems All systems: as per HPI - Past Medical History Past Medical History: Yes Neurological History: No Pertinent History ENT History: No Pertinent History Cardiac History: Hypertension Respiratory History: Bronchitis, Pneumonia Endocrine Medical History: Hypothyroidism Musculoskelatal History: No Pertinent History GI Medical History: Irritable Bowel History: No Pertinent History Pyscho-Social History: Anxiety, Bipolar, Depression Male Reproductive Disorders: No Pertinent History - Past Surgical History Past Surgical History: Yes Neuro Surgical History: No Pertinent History Cardiac History: No Pertinent History Respiratory Surgery: No Pertinent History GI Surgical History: No Pertinent History Genitourinary Surgical Hx: No Pertinent History Musculskeletal Surgical Hx: No Pertinent History Male Surgical History: No Pertinent History Other Surgical History: TUBES IN EARS Significant Family History: hypertension - Social History Smoking Status: Never smoker Exposure to second hand smoke: No Alcohol: None Drug Use: other - Social Determinants of Health Will the patient participate in the screening: Yes Do you worry about a steady place to live?: No Do you have any problems with any of the following?: No known problems In the past 12 months,have you had to go without utilities?: No Have you or anyone in your house had to go without enough: No Transportation Issues: No Has anyone in your support network made you feel unsafe?: No Does the patient want assistance with any of the above?: No Medications & Allergies Home Medications: Home Medication List Lumateperone Tosylate [Caplyta] 42 mg PO DAILY 03/21/24 [History Confirmed 03/21/24] Propranolol HCl 10 mg PO TID 03/21/24 [History Confirmed 03/21/24] Trazodone HCl 50 mg PO HS PRN PRN 03/21/24 [History Confirmed 03/21/24] Allergies/Adverse Reactions: Allergies Allergy/AdvReac Type Severity Reaction Status Date / Time No Known Drug Allergies Allergy Verified 03/21/24 07:50 Exam - Vitals Vital Signs: Vital Signs - 24 hr Temp Pulse Pulse Resp BP BP Pulse Ox 03/21/24 20:00 98.0 F 78 17 134/81 96 03/21/24 15:00 72 03/21/24 14:08 97.8 F 66 16 151/99 95 03/21/24 13:11 100 03/21/24 13:00 21 97/57 97 03/21/24 12:30 18 109/78 97 03/21/24 12:00 17 113/79 97 03/21/24 11:30 24 124/75 96 03/21/24 10:30 14 108/75 97 03/21/24 10:00 67 32 H 128/85 93 L 03/21/24 09:30 16 125/93 96 03/21/24 09:20 96 03/21/24 09:10 16 95 03/21/24 09:01 79 22 03/21/24 08:50 97 03/21/24 08:40 98 03/21/24 08:33 77 18 98 03/21/24 08:15 98 03/21/24 08:13 20 L 03/21/24 08:00 74 137/92 97 03/21/24 07:48 96.7 F 75 16 141/98 100 General:: alert and oriented x 4 HEENT: PERRLA, EOMI, EOMx6 Cardiovascular Exam: regular rate/rhythm, normal heart sounds Respiratory Exam: normal breath sounds, No chest tenderness SpO2: 96 Oxygen Delivery: Room Air Gastrointestinal/Abdomen Exam: soft, normal bowel sounds Back Exam: normal inspection 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 Results Vital Signs: Vital Signs - 24 hr Temp Pulse Pulse Resp BP BP Pulse Ox 03/21/24 20:00 98.0 F 78 17 134/81 96 03/21/24 15:00 72 03/21/24 14:08 97.8 F 66 16 151/99 95 03/21/24 13:11 100 03/21/24 13:00 21 97/57 97 03/21/24 12:30 18 109/78 97 03/21/24 12:00 17 113/79 97 03/21/24 11:30 24 124/75 96 03/21/24 10:30 14 108/75 97 03/21/24 10:00 67 32 H 128/85 93 L 03/21/24 09:30 16 125/93 96 03/21/24 09:20 96 03/21/24 09:10 16 95 03/21/24 09:01 79 22 03/21/24 08:50 97 03/21/24 08:40 98 03/21/24 08:33 77 18 98 03/21/24 08:15 98 03/21/24 08:13 20 L 03/21/24 08:00 74 137/92 97 03/21/24 07:48 96.7 F 75 16 141/98 100 Pain Assessment - Last Documented Pain Intensity 2 Intake and Output: Intake & Output 03/19/24 03/20/24 03/21/24 03/22/24 11:59 11:59 11:59 11:59 Intake Total 840 Balance 840 Weight 99.79 kg 99.8 kg LAB: I have reviewed the Labs in [facility]. Radiology Exams: Radiology Procedures Category Date Time Status CHEST 1 VIEW (PORTABLE) Stat Exams 03/21/24 10:51 Completed ECHO W/2D AND DOPPLER [US] Routine Exams 03/21/24 15:03 Taken - ECHO Echo: image reviewed by me (Normal LV size and function. EF 65%) Assessment & Plan (1) Chest pain Current Visit: Yes Status: Acute Assessment & Plan: Troponin negative x 2. ECG without ischemia Echocardiogram normal LV size and function monitor on telemetry overnight check one more set of troponin, if negative dc with outpatient stress test Code(s): R07.9 - CHEST PAIN, UNSPECIFIED (2) Chewing tobacco dependence Current Visit: Yes Status: Acute Code(s): F17.220 - NICOTINE DEPENDENCE, CHEWING TOBACCO, UNCOMPLICATED (3) HTN (hypertension) Current Visit: Yes Status: Acute Assessment & Plan: Goal <140/90 Continue lisinopril diet and lifestyle changes encouraged Code(s): I10 - ESSENTIAL (PRIMARY) HYPERTENSION - Encounter Encounter: "The entirety of this encounter was performed via Telemedicine using audio and visual "
[2024-03-22 05:25] LABS: Absolute Neutrophil Ct (ANC) 3.18 x10^3/uL (1.78-5.38); BASOPHIL % 0.7 % (0.2-1.2); Basophil (Absolute #) 0.04 x10^3/uL (0.01-0.08); Eosinophil % 2.5 % (0.8-7.0); Eosinophil (Absolute #) 0.14 x10^3/uL (0.04-0.54); Hematocrit 42.9 % (40.1-51.0); Hemoglobin 14.9 g/dL (13.7-17.5); IMMATURE GRAN # 0.02 x10^3u/L (0.001-0.031); IMMATURE GRAN % 0.4 % (0.001-0.429); Lymphocyte (Absolute #) 1.79 x10^3/uL (1.32-3.57); Lymphocytes % 32.2 % (21.8-53.1); Mean Cell Volume 90.7 fL (79.0-92.2); Mean Corpuscular Hemoglobin 31.5 pg (25.7-32.2); Mean Corpuscular Hgb Concent. 34.7 g/dL (32.3-36.5); Monocyte (Absolute #) 0.39 x10^3/uL (0.30-0.82); Neutrophil % 57.2 % (34.0-67.9); Platelet Count 254 x10^3/uL (163-337); Red Blood Count 4.73 x10^6/uL (4.63-6.08); Red Cell Distribution Width 12.3 % (11.6-14.4); White Blood Count 5.6 x10^3/uL (4.23-9.07)
[2024-03-22 05:33] LABS: ALBUMIN 4.5 g/dL (3.5-5.0); ANION GAP 10.5 MEQ/L (5-15); BILIRUBIN,TOTAL 0.6 mg/dL (0.2-1.3); Calcium 8.6 mg/dL (8.4-10.2); Creatinine 1 1.03 mg/dL (0.66-1.25); EST GLOMERULAR FILTRATION RATE 94.2 ML/MIN; Potassium 4.4 mmol/L (3.5-5.1); Total Protein 6.8 g/dL (6.3-8.2)
--- NOTE | 2024-03-22 05:52 | PCM.DS ---
Discharge Summary Date of Admission: 03/21/24 14:07 Date of Discharge: 03/22/24 Admitting Physician: LUCRETIA VIVAR MD Consults: Consults on Case 03/21/24 15:02 Consult Cardiology ROUTINE Primary Care Provider: DEEDEE SAMPSON Allergies Allergies No Known Drug Allergies Allergy (Verified 03/21/24 07:50) Hospital Summary - Hospital Course Hospital Course: is a 39 year old male with a pmhx of bipolar disease, HTN, and hypothroidism presented to ED 03/21/24 with complaints of a one month history of chest pain. Patient reports that over the past month he has been experiencing intermittent left-sided chest pain. He describes the pain as a dull ache with radiation to the left arm. Associated shortness of breath. Stress and exertion seems to aggravate symptoms. Nitro relieved pain. Patient has been prescribed blood pressure and synthroid but has not taken them. Upon arrival to the ED, vitals stable. EKG NS with LVH. CXR with no acute findings. Lab findings unremarkable. Troponin x 3 negative. ECG without ischemia,Echocardiogram normal LV size and function. Patient given Nitro paste and Asprin in ED with relief of symptoms. Admit for chest pain r/o. Cardiology consulted with recommendations for OP stress test and continue lisinopril/diet-lifestyle modifications. Discharge Note New Diagnosis: New Medications: Follow Up: Results pending: Outpatient testing to order: Latest Assessment & Plan (1) Chest pain Current Visit: Yes Status: Acute Assessment & Plan: -EKG NS with LVH -Echo ordered and pending -TSH/BNP/MG -trops x 2 WNL - trend -cardiology consult 03/22: -ECG without ischemia,Echocardiogram normal LV size and function. -Cardiology consulted with recommendations for OP stress test and continue lisinopril/diet-lifestyle modifications. Code(s): R07.9 - CHEST PAIN, UNSPECIFIED (2) Bipolar 1 disorder Current Visit: Yes Status: Acute Assessment & Plan: -continue home meds caplyta Code(s): F31.9 - BIPOLAR DISORDER, UNSPECIFIED (3) Hypothyroidism Current Visit: Yes Status: Acute Assessment & Plan: -Patient not taking synthroid as prescribed - will obtain TSH/Ft4 Code(s): E03.9 - HYPOTHYROIDISM, UNSPECIFIED (4) HTN (hypertension) Current Visit: Yes Status: Acute Assessment & Plan: -Patient not taking home blood pressure meds - will start on lisinopril Code(s): I10 - ESSENTIAL (PRIMARY) HYPERTENSION (5) Chewing tobacco dependence Current Visit: Yes Status: Acute Assessment & Plan: -Patient requesting nicotine patch - advised cessation VTE: lovenox PPI: protonix Dispo: 1-2 days I spent 35 minutes [id number] with the patient on the day of discharge performing discharge exam, discussing hospital stay and discharge instructions with patient and caregivers, preparation of discharge records, prescriptions & referral forms and addressing any questions/concerns the patient had as documented above. i - Vitals & Intake/Output Vital Signs: Vital Signs Temperature 98.7 F 03/22/24 04:00 Pulse Rate 64 03/22/24 04:00 Respiratory Rate 16 03/22/24 04:00 Blood Pressure 119/77 03/22/24 04:00 O2 Sat by Pulse Oximetry 95 03/22/24 04:00 Intake & Output: Intake & Output 03/19/24 03/20/24 03/21/24 03/22/24 11:59 11:59 11:59 11:59 Intake Total 1840 Balance 1840 Weight 99.79 kg 99.8 kg - Lab Result Diagrams: 03/22/24 05:07 03/22/24 05:07 Lab Results-Last 24 Hrs: Lab Results-Last 24 Hours 03/21/24 03/21/24 03/21/24 Range/Units 08:04 08:04 08:04 WBC 5.0 (4.23-9.07) x10^3/uL RBC 4.69 (4.63-6.08) x10^6/uL Hgb 14.9 (13.7-17.5) g/dL Hct 42.8 (40.1-51.0) % MCV 91.3 (79.0-92.2) fL MCH 31.8 (25.7-32.2) pg MCHC 34.8 (32.3-36.5) g/dL RDW 12.2 (11.6-14.4) % Plt Count 226 (163-337) x10^3/uL MPV 8.8 L (9.4-12.4) fL Gran % 66.4 (34.0-67.9) % Immature Gran % (Auto) 1.0 H (0.001-0.429) % Nucleat RBC Rel Count 0.0 (0.00-0.2) % Eos # (Auto) 0.10 (0.04-0.54) x10^3/uL Immature Gran # (Auto) 0.05 H (0.001-0.031) x10^3u/L Absolute Lymphs (auto) 1.21 L (1.32-3.57) x10^3/uL Absolute Monos (auto) 0.27 L (0.30-0.82) x10^3/uL Absolute Nucleated RBC 0.00 (0.00-0.012) x10^3u/L Lymphocytes % 24.4 (21.8-53.1) % Monocytes % 5.4 (5.3-12.2) % Eosinophils % 2.0 (0.8-7.0) % Basophils % 0.8 (0.2-1.2) % Absolute Granulocytes 3.29 (1.78-5.38) x10^3/uL Basophils # 0.04 (0.01-0.08) x10^3/uL D-Dimer < 0.19 (0.0-0.50) mg/L Sodium 140 (135-145) mmol/L Potassium 3.8 (3.5-5.1) mmol/L Chloride 104 (98-107) mmol/L Carbon Dioxide 24 (22-30) mmol/L Anion Gap 14.9 (5-15) MEQ/L BUN 17 (9-20) mg/dL Creatinine 1.01 (0.66-1.25) mg/dL Estimated GFR 96.4 ML/MIN Glucose 165 H (74-106) mg/dL POC Glucometer (74 to 106) mg/dL Calcium 9.1 (8.4-10.2) mg/dL Magnesium (1.6-2.3) mg/dL Total Bilirubin 0.70 (0.2-1.3) mg/dL AST 34 (17-59) U/L ALT 43 (0-50) U/L Alkaline Phosphatase 47 (38-126) U/L Troponin I (0.000-0.033) ng/mL NT-Pro-B Natriuret Pep 41.6 (<300) pg/mL Serum Total Protein 6.6 (6.3-8.2) g/dL Albumin 4.5 (3.5-5.0) g/dL Free T4 (0.78-2.19) ng/dL TSH 3rd Generation (0.470-4.680) mIU/L 03/21/24 03/21/24 03/21/24 Range/Units 08:04 10:58 15:55 WBC (4.23-9.07) x10^3/uL RBC (4.63-6.08) x10^6/uL Hgb (13.7-17.5) g/dL Hct (40.1-51.0) % MCV (79.0-92.2) fL MCH (25.7-32.2) pg MCHC (32.3-36.5) g/dL RDW (11.6-14.4) % Plt Count (163-337) x10^3/uL MPV (9.4-12.4) fL Gran % (34.0-67.9) % Immature Gran % (Auto) (0.001-0.429) % Nucleat RBC Rel Count (0.00-0.2) % Eos # (Auto) (0.04-0.54) x10^3/uL Immature Gran # (Auto) (0.001-0.031) x10^3u/L Absolute Lymphs (auto) (1.32-3.57) x10^3/uL Absolute Monos (auto) (0.30-0.82) x10^3/uL Absolute Nucleated RBC (0.00-0.012) x10^3u/L Lymphocytes % (21.8-53.1) % Monocytes % (5.3-12.2) % Eosinophils % (0.8-7.0) % Basophils % (0.2-1.2) % Absolute Granulocytes (1.78-5.38) x10^3/uL Basophils # (0.01-0.08) x10^3/uL D-Dimer (0.0-0.50) mg/L Sodium (135-145) mmol/L Potassium (3.5-5.1) mmol/L Chloride (98-107) mmol/L Carbon Dioxide (22-30) mmol/L Anion Gap (5-15) MEQ/L BUN (9-20) mg/dL Creatinine (0.66-1.25) mg/dL Estimated GFR ML/MIN Glucose (74-106) mg/dL POC Glucometer (74 to 106) mg/dL Calcium (8.4-10.2) mg/dL Magnesium (1.6-2.3) mg/dL Total Bilirubin (0.2-1.3) mg/dL AST (17-59) U/L ALT (0-50) U/L Alkaline Phosphatase (38-126) U/L Troponin I < 0.012 < 0.012 < 0.012 (0.000-0.033) ng/mL NT-Pro-B Natriuret Pep (<300) pg/mL Serum Total Protein (6.3-8.2) g/dL Albumin (3.5-5.0) g/dL Free T4 (0.78-2.19) ng/dL TSH 3rd Generation (0.470-4.680) mIU/L 03/21/24 03/21/24 03/21/24 Range/Units 15:55 15:55 20:07 WBC (4.23-9.07) x10^3/uL RBC (4.63-6.08) x10^6/uL Hgb (13.7-17.5) g/dL Hct (40.1-51.0) % MCV (79.0-92.2) fL MCH (25.7-32.2) pg MCHC (32.3-36.5) g/dL RDW (11.6-14.4) % Plt Count (163-337) x10^3/uL MPV (9.4-12.4) fL Gran % (34.0-67.9) % Immature Gran % (Auto) (0.001-0.429) % Nucleat RBC Rel Count (0.00-0.2) % Eos # (Auto) (0.04-0.54) x10^3/uL Immature Gran # (Auto) (0.001-0.031) x10^3u/L Absolute Lymphs (auto) (1.32-3.57) x10^3/uL Absolute Monos (auto) (0.30-0.82) x10^3/uL Absolute Nucleated RBC (0.00-0.012) x10^3u/L Lymphocytes % (21.8-53.1) % Monocytes % (5.3-12.2) % Eosinophils % (0.8-7.0) % Basophils % (0.2-1.2) % Absolute Granulocytes (1.78-5.38) x10^3/uL Basophils # (0.01-0.08) x10^3/uL D-Dimer (0.0-0.50) mg/L Sodium (135-145) mmol/L Potassium (3.5-5.1) mmol/L Chloride (98-107) mmol/L Carbon Dioxide (22-30) mmol/L Anion Gap (5-15) MEQ/L BUN (9-20) mg/dL Creatinine (0.66-1.25) mg/dL Estimated GFR ML/MIN Glucose (74-106) mg/dL POC Glucometer 112 H (74 to 106) mg/dL Calcium (8.4-10.2) mg/dL Magnesium 2.0 (1.6-2.3) mg/dL Total Bilirubin (0.2-1.3) mg/dL AST (17-59) U/L ALT (0-50) U/L Alkaline Phosphatase (38-126) U/L Troponin I (0.000-0.033) ng/mL NT-Pro-B Natriuret Pep (<300) pg/mL Serum Total Protein (6.3-8.2) g/dL Albumin (3.5-5.0) g/dL Free T4 0.85 (0.78-2.19) ng/dL TSH 3rd Generation 5.031 H (0.470-4.680) mIU/L 03/22/24 Range/Units 05:07 WBC 5.6 (4.23-9.07) x10^3/uL RBC 4.73 (4.63-6.08) x10^6/uL Hgb 14.9 (13.7-17.5) g/dL Hct 42.9 (40.1-51.0) % MCV 90.7 (79.0-92.2) fL MCH 31.5 (25.7-32.2) pg MCHC 34.7 (32.3-36.5) g/dL RDW 12.3 (11.6-14.4) % Plt Count 254 (163-337) x10^3/uL MPV 9.0 L (9.4-12.4) fL Gran % 57.2 (34.0-67.9) % Immature Gran % (Auto) 0.4 (0.001-0.429) % Nucleat RBC Rel Count 0.0 (0.00-0.2) % Eos # (Auto) 0.14 (0.04-0.54) x10^3/uL Immature Gran # (Auto) 0.02 (0.001-0.031) x10^3u/L Absolute Lymphs (auto) 1.79 (1.32-3.57) x10^3/uL Absolute Monos (auto) 0.39 (0.30-0.82) x10^3/uL Absolute Nucleated RBC 0.00 (0.00-0.012) x10^3u/L Lymphocytes % 32.2 (21.8-53.1) % Monocytes % 7.0 (5.3-12.2) % Eosinophils % 2.5 (0.8-7.0) % Basophils % 0.7 (0.2-1.2) % Absolute Granulocytes 3.18 (1.78-5.38) x10^3/uL Basophils # 0.04 (0.01-0.08) x10^3/uL D-Dimer (0.0-0.50) mg/L Sodium (135-145) mmol/L Potassium (3.5-5.1) mmol/L Chloride (98-107) mmol/L Carbon Dioxide (22-30) mmol/L Anion Gap (5-15) MEQ/L BUN (9-20) mg/dL Creatinine (0.66-1.25) mg/dL Estimated GFR ML/MIN Glucose (74-106) mg/dL POC Glucometer (74 to 106) mg/dL Calcium (8.4-10.2) mg/dL Magnesium (1.6-2.3) mg/dL Total Bilirubin (0.2-1.3) mg/dL AST (17-59) U/L ALT (0-50) U/L Alkaline Phosphatase (38-126) U/L Troponin I (0.000-0.033) ng/mL NT-Pro-B Natriuret Pep (<300) pg/mL Serum Total Protein (6.3-8.2) g/dL Albumin (3.5-5.0) g/dL Free T4 (0.78-2.19) ng/dL TSH 3rd Generation (0.470-4.680) mIU/L - Radiology Exams Ordered Rad Exams-Entire Visit: Radiology Procedures Category Date Time Status CHEST 1 VIEW (PORTABLE) Stat Exams 03/21/24 10:51 Completed ECHO W/2D AND DOPPLER [US] Routine Exams 03/21/24 15:03 Taken - Procedures and Test Procedures and Tests throughout Hospitalization: Therapy Orders & Screens 03/21/24 15:32 EKG REPEAT IN AM Comment: Diagnosis: Chest pain, ACS Discharge Exam General Appearance: no apparent distress Neurologic Exam: alert, oriented x 3, cooperative Eye Exam: PERRL Ears, Nose, Throat Exam: normal ENT inspection Neck Exam: normal inspection Respiratory Exam: normal breath sounds, lungs clear Cardiovascular Exam: regular rate/rhythm, normal heart sounds Gastrointestinal/Abdomen Exam: soft, normal bowel sounds Male Genitalia Exam: deferred Rectal Exam: deferred Back Exam: normal inspection Extremity Exam: normal inspection Skin Exam: normal color Final Diagnosis/Problem List - Final Discharge Diagnosis/Problem (1) Chest pain Current Visit: Yes Status: Resolved Code(s): R07.9 - CHEST PAIN, UNSPECIFIED (2) Bipolar 1 disorder Current Visit: Yes Status: Chronic Code(s): F31.9 - BIPOLAR DISORDER, UNSPECIFIED (3) Hypothyroidism Current Visit: Yes Status: Chronic Code(s): E03.9 - HYPOTHYROIDISM, UNSPECIFIED (4) HTN (hypertension) Current Visit: Yes Status: Chronic Code(s): I10 - ESSENTIAL (PRIMARY) HYPERTENSION (5) Chewing tobacco dependence Current Visit: Yes Status: Chronic Code(s): F17.220 - NICOTINE DEPENDENCE, CHEWING TOBACCO, UNCOMPLICATED - Discharge Discharge Date: 03/22/24 Disposition: Home, Self-Care Condition: Stable Prescriptions: New Atorvastatin Calcium 40 mg PO DAILY 30 Days #30 tablet Nicotine 21 mg [Nicoderm CQ 21 MG] 21 mg TOP Q24H10 42 Days #42 patch Lisinopril 20 mg [Zestril 20 MG] 20 mg PO DAILY 30 Days #30 tablet Continue Lumateperone Tosylate [Caplyta] 42 mg PO DAILY Trazodone HCl 50 mg PO HS PRN PRN PRN Reason: Insomnia Discontinued Propranolol HCl 10 mg PO TID Follow up with: DEEDEE SAMPSON MD [Primary Care Provider] -
[2024-03-22 11:58] VITALS: BP 188/86; PULSE 84; RESP 18; TEMP 98.3; O2SAT 97
== END 2024-03-22 12:40 | disposition home or self-care (01) ==
LOC: ED 07:41 → MED SURG 14:07
PROVIDERS: ADMIT Internal Medicine; ATTEND Internal Medicine
DX: R07.9 Chest pain, unspecified (principal); F31.9 Bipolar disorder, unspecified; E03.9 Hypothyroidism, unspecified; I10 Essential (primary) hypertension; F17.220 Nicotine dependence, chewing tobacco, uncomplicated; R73.9 Hyperglycemia, unspecified; Z79.899 Other long term (current) drug therapy
CPT/HCPCS: 36415; 71045; 80053; 80061; 82947; 83721; 83735; 83880; 84439; 84443; 84484; 85025; 85379; 93005; 93041; 93268; 93306; 94760; 99285; G0378; Q3014; 99284; J1650; J7609; A9270-GY